=== PATIENT | male | born 1990 | race Caucasian/White ===

== ENCOUNTER → 2024-03-09 15:00 | Outpatient (REF) | payer BC, SELFPAY ==
[2024-03-10 17:29] LABS: Urine Albumin Negative (Neg - Trace); Urine Bilirubin Negative (Negative); Urine Character Clear (Clear); Urine Color Yellow; Urine Glucose Negative (Negative); Urine Ketone Negative (Negative); Urine Leukocyte Negative (Negative); Urine Nitrite Negative (Negative); Urine Occult Blood Negative (Negative); Urine Urobilinogen Negative (Neg - 1+)
== END ==
LOC: REG 15:00
PROVIDERS: ATTENDING PHYSICIAN Registered Nurse
DX: R39.9 Unspecified symptoms and signs involving the genitourinary system (principal)
CPT/HCPCS: 81003; 87086

== ENCOUNTER → 2024-03-17 15:59 | Outpatient (REF) | payer BC, SELFPAY ==
[2024-03-17 16:33] LABS: Urine Albumin Negative (Neg - Trace); Urine Bilirubin Negative (Negative); Urine Character Clear (Clear); Urine Color Straw; Urine Glucose Negative (Negative); Urine Ketone Negative (Negative); Urine Leukocyte Negative (Negative); Urine Nitrite Negative (Negative); Urine Occult Blood Negative (Negative); Urine Urobilinogen Negative (Neg - 1+); Urine pH 6.5 (5.0-9.0)
== END ==
LOC: REG 15:59
PROVIDERS: ATTENDING PHYSICIAN Registered Nurse
DX: R39.9 Unspecified symptoms and signs involving the genitourinary system (principal)
CPT/HCPCS: 81003; 87086

== ENCOUNTER → 2024-12-11 07:44 | Outpatient (REF) | payer BC, SELFPAY ==
[2024-12-11 09:16] LABS: % Basophils 0.8 % (0-2); % Eosinophils 6.3 % (0-6); % Immature Granulocytes 0.2 % (0-0.5); % Lymphocytes 43.4 % (20.5-51.1); % Neutrophils 42.3 % (42.2-75.2); Absolute Basophils 0.1 10^3/uL (0-0.2); Absolute Eosinophils 0.4 10^3/uL (0-0.7); Absolute Lymphocytes 2.6 10^3/uL (1.2-3.4); Absolute Monocytes 0.4 10^3/uL (0.1-0.6); Absolute Neutrophils 2.6 10^3/uL (1.4-6.5); Hemoglobin 15.8 g/dL (13.0-18.0); Mean Corp Hgb Conc. 34.3 g/dL (33.0-37.0); Mean Corpuscular Hgb 29.9 pg (27.0-31.0); Mean Platelet Volume 9.6 fL (7.4-10.4); Nucleated Red Blood Cells % 0 % (-); Platelet Count 245 10^3/uL (130-400); Red Blood Cell Count 5.29 10^6/uL (4.70-6.10); Red Cell Dist. Width 12.5 % (11.5-14.5)
[2024-12-11 10:20] LABS: ALT (SGPT) 36 U/L (0-50); AST (SGOT) 31 U/L (17-59); Albumin 4.5 g/dl (3.5-5.0); Alkaline Phosphatase 75 U/L (38-126); Blood Urea Nitrogen 11 mg/dl (9-20); Calcium 9.6 mg/dl (8.4-10.2); Carbon Dioxide 31 mmol/L (22-30); Chloride 97 mmol/L (98-107); Glucose 92 mg/dl (70-99); HDL Cholesterol 92 mg/dl; LDL Cholesterol, Calculated 86 mg/dl; Potassium 4.9 mmol/L (3.5-5.1); Sodium 137 mmol/L (135-145); Total Bilirubin 0.5 mg/dl (0.2-1.3); Total Cholesterol 207 mg/dl (50-199); Total Protein 7.3 g/dl (6.3-8.2); Triglyceride 146 mg/dl (10-149); Very Low Density Lipoprotein 29 mg/dl (0-30); eGFR > 60.00
[2024-12-11 10:23] LABS: TSH Reflex To Free T4 1.34 uIU/ml (0.47-4.68)
== END ==
LOC: REG 07:44
PROVIDERS: ATTENDING PHYSICIAN Registered Nurse
DX: Z00.00 Encounter for general adult medical examination without abnormal findings (principal)
CPT/HCPCS: 36415; 80053; 80061; 84443; 85025

== ENCOUNTER → 2025-10-23 10:15 | Outpatient (REF) | payer BC, SELFPAY | LOC: CLAB 10:15 | PROVIDERS: ATTENDING PHYSICIAN Specialist | DX: Z30.2 Encounter for sterilization (principal) | CPT/HCPCS: 88302 ==